=== PATIENT | female | born 1955 | race Caucasian/White ===

== ENCOUNTER 2018-03-01 07:01 | Day surgery (SDC) | payer BC ==
[~2018-03-01 07:01] MED LIST: ACETAMINOPHEN 1,000 MG/100 ML BTL IV ONE; FAMOTIDINE 20MG TABLET PO ONE; MECLIZINE 25 MG TABLET PO ONE; METOCLOPRAMIDE 10 MG TABLET PO ONE; MUPIROCIN OINT 22 GM TUBE TOP ONE
[2018-03-01] MEDS ORDERED: ONDANSETRON HCL IV 4 MG/2 ML VIAL IVP ONE (07:02)
[2018-03-01] MEDS ORDERED: DEXAMETHASONE 4 MG/ML 1ML VIAL IVP ONE (07:02)
[2018-03-01] MEDS ORDERED: FENTANYL PF 100MCG/2ML VIAL IV ONE (07:02)
[2018-03-01] MEDS ORDERED: BUPIVACAINE 0.25% W/EPI MPF 30ML VIAL IVP ONE (07:02)
[2018-03-01] MEDS ORDERED: NEOSTIGMINE 1 MG/1 ML,10ML VIAL IV ONE (07:02)
[2018-03-01] MEDS ORDERED: PROPOFOL 10 MG/ML VIAL IV ONE (07:02)
[2018-03-01] MEDS ORDERED: MIDAZOLAM HCL 2MG/2ML VIAL IV ONE (07:02)
[2018-03-01] MEDS ORDERED: KETOROLAC 30 MG/ML VIAL IVP ONE (07:02)
[2018-03-01] MEDS ORDERED: GLYCOPYRROLATE 0.2 MG/ML ML IV ONE (07:02)
[2018-03-01] MEDS ORDERED: SUCCINYLCHOLINE 20 MG/ML 10ML IVP ONE (07:02)
[2018-03-01] MEDS ORDERED: LIDOCAINE 2% MDV (20MG/ML) 20ML VIAL IV ONE (07:02)
[2018-03-01] MEDS ORDERED: HYDROCODONE/APAP 5/325MG TABLET PO ONE (07:02)
[2018-03-01] MEDS ORDERED: SEVOFLURANE 250 ML INH ONE (07:02)
[2018-03-01] MEDS ORDERED: ROCURONIUM BROMIDE 50MG/5ML VIAL IV ONE (07:02)
--- NOTE | 2018-03-01 14:50 | Operative Note ---
DATE OF SURGERY: 03/01/2018 Surgeon: Mahendra Crane DO PREOPERATIVE DIAGNOSIS: Cholelithiasis with chronic cholecystitis. POSTOPERATIVE DIAGNOSIS: Cholelithiasis with chronic cholecystitis. OPERATION: Laparoscopic cholecystectomy. Indication: The patient is a 62-year-old female who is having ongoing right subcostal postprandial pain. Imaging studies did reveal cholelithiasis. Clinical history was that of recurrent biliary colic. We did discuss cholecystectomy. Risks, benefits, and alternatives were discussed. Risks include bleeding, infection, ductal injury, possible conversion to open, postoperative bile leak. She understood this fully. PROCEDURE: Thereafter, consent was signed and questions answered. She was taken to the operating room and placed in a supine position. General anesthesia was administered per the department of anesthesia. The patient's abdomen was prepped and draped in the usual sterile fashion. The infraumbilical region was anesthetized with a total of 5 mL of 0.25% Sensorcaine with epinephrine. A 2 cm infraumbilical incision was made. This was carried down to the anterior rectus fascia. This was incised. Kareem clamps were placed on the fascial edges and brought up into the wound. Stay sutures of 0 Vicryl were placed. Posterior rectus sheath was identified and incised. The peritoneal cavity was entered bluntly. At this time, a 10 mm blunt Alexey port was placed. Adequate pneumoperitoneum was established. Under direct visualization, additional 5 mm epigastric and two 5 mm right subcostal ports were placed. The gallbladder was identified in the subhepatic space. It was thick and there were some dense omental adhesions anteriorly. The gallbladder was retracted in a cephalad direction. The omental adhesions were taken down with the Willem harmonic. Hemostasis was noted. The gallbladder was retracted farther in a cephalad and lateral direction opening up the angle of Calot. The hepatocystic triangle was thoroughly dissected out. There was no aberrant anatomy, no posterior ductal structures. The cystic duct and cystic artery were clearly identified. The patient did have a very friable node of Calot as well. Each one was doubly clipped and cut in a standard fashion. Gallbladder was then taken off the liver bed with the Willem harmonic. This was then extracted through the umbilical port. Right upper quadrant was rechecked and found to be hemostatic. No bleeding. No bile leak. No bowel injury noted. The patient was leveled out. The pneumoperitoneum was released. All ports were removed. The fascia was closed with 0 Vicryl in a [id number] fashion. The skin at all ports was closed with 4-0 Vicryl. The patient was taken to the recovery room in satisfactory condition. FINDINGS AT THE TIME OF SURGERY: Chronic cholecystitis. CC: NORMA BOYER MD, FACP [facility]
== END 2018-03-01 10:55 | disposition home or self-care (01) ==
LOC: SUR 07:01
PROVIDERS: ATTEND Surgery
DX: K80.10 Calculus of gallbladder with chronic cholecystitis without obstruction (principal); I10 Essential (primary) hypertension; G47.30 Sleep apnea, unspecified
CPT/HCPCS: 47562; 00790; J1885; J2405; J3010; J0330; J2710

== ENCOUNTER 2018-05-31 22:30 | Emergency (ER) | payer BC ==
[2018-05-31] MEDS ORDERED: ONDANSETRON HCL IV 4 MG/2 ML VIAL IVP ONE (22:39)
[2018-05-31] MEDS ORDERED: MAGNESIUM HYDROXIDE/AL HYDROX 30 ML, LIDOCAINE VISC 2% 15ML 15 ML PO ONE ×2 (22:40)
--- NOTE | 2018-05-31 22:44 | Emergency Department Record ---
History of Present Illness - General Chief Complaint: Abdominal Pain Stated Complaint: ABDOMINAL PAIN,HEARTBURN PAIN Time Seen by Provider: 05/31/18 22:32 Source: Patient Mode of Arrival: Ambulatory Limitations: No limitations - History of Present Illness Initial Comments: 63 yo female presents to ED for evaluation of epigatric abdominal pain that began 3 days ago. Patient reports decreased appetite and pain with eating, denies fevers, chills, cough, or vomiting symptoms. Patient does reports loose stools today, denies urinary symptoms or flank pain. Patient reports recent cholcystectomy as well. Patient denies health problems other than depression and anxiety. MD Complaint: Abdominal pain Onset/Timin -: Days(s) Severity: Moderate Quality: Aching Consistency: Constant Improves With: Nothing Worsens With: Nothing Associated Symptoms: Denies other symptoms - Related Data Patient : No Hx Age of Menopause: 42 Home Medications Medication Instructions Recorded Confirmed Last Taken Alprazolam 0.25 mg PO BID PRN 05/31/18 05/31/18 Unknown Losartan Potassium [Cozaar] 25 mg PO DAILY 05/31/18 05/31/18 Unknown Allergies Allergy/AdvReac Type Severity Reaction Status Date / Time No Known Drug Allergies Allergy Verified 04/07/14 08:15 Review of Systems Constitutional: Denies: Chills, Fever, Malaise, Night sweats Eyes: Denies: Eye discharge, Eye pain ENT: Denies: Congestion, Ear pain, Epistaxis Respiratory: Denies: Cough, Dyspnea Cardiovascular: Reports: Chest pain. Denies: Dyspnea on exertion Endocrine: Denies: Fatigue, Heat or cold intolerance Gastrointestinal: Reports: Abdominal pain, Nausea. Denies: Vomiting Genitourinary: Denies: Incontinence, Retention Musculoskeletal: Denies: Arthralgia, Back pain, Gout, Joint swelling Skin: Denies: Bruising, Change in color Neurological: Denies: Abnormal gait, Confusion, Headache, Seizure Psychiatric: Denies: Anxiety Hematological/Lymphatic: Denies: Anemia, Blood Clots Past Medical History - SOCIAL HISTORY Smoking Status: Former smoker - RESPIRATORY Hx Respiratory Disorders: Yes Hx Bronchitis: Yes (not recently) Hx Sleep Apnea: Yes Hx of CPAP: Yes (pt can't get used to it-dont use) - CARDIOVASCULAR Hx Cardio Disorders: Yes Hx Hypertension: Yes (med good control) - NEURO Hx Neuro Disorders: No - GI Hx GI Disorders: Yes Hx Abdominal Pain: Yes (RUQ due to gallstones) Hx Wt Loss/Wt Gain: Yes (gain 10lbs in last 2 months) - Hx Genitourinary Disorders: No Hx Bladder Problem: Yes (stress incont) - ENDOCRINE Hx Endocrine Disorders: No - MUSCULOSKELETAL Hx Musculoskeletal Disorders: No - PSYCH Hx Psych Problems: Yes Hx Anxiety: Yes Hx Depression: Yes - HEMATOLOGY/ONCOLOGY Hx Hematology/Oncology Disorders: Yes Hx Anemia: Yes (age 20s) Family Medical History Hx Anxiety: Father Hx Cancer: Father *Cancer Comment: father melanoma Hx Dementia: Grandparents Hx Depression: Father Hx Heart Disease: Father *Heart Comment: chf Hx HTN: Mother Hx Kidney Disease: Father *Kidney Comment: on dialysis Hx Resp Disorders: Father *Resp Comment: copd Hx Stroke: Father Physical Exam - General General Appearance: Alert, Oriented x3, Cooperative, Mild distress Limitations: No limitations - Head Head exam: Atraumatic, Normocephalic, Normal inspection Head exam detail: negative: Abrasion, Contusion, Gooden's sign, General tenderness, Hematoma, Laceration - Eye Eye exam: Normal appearance. negative: Conjunctival injection, Periorbital swelling, Periorbital tenderness, Scleral icterus - ENT Ear exam: negative: Auricular hematoma, Auricular trauma Nasal Exam: negative: Active bleeding, Discharge, Dried blood, Foreign body Mouth exam: negative: Drooling, Laceration, Muffled voice, Tongue elevation - Neck Neck exam: Normal inspection. negative: Meningismus, Tenderness - Respiratory Respiratory exam: Normal lung sounds bilaterally. negative: Rales, Respiratory distress, Rhonchi, Stridor - Cardiovascular Cardiovascular Exam: Regular rate, Normal rhythm, Normal heart sounds - GI/Abdominal GI/Abdominal exam: Soft, Other (Abdominal examination is non-tender, no distention, no guarding, no peritoneal signs on examination.). negative: Rebound, Rigid, Tenderness - Rectal Rectal exam: Deferred - exam: Deferred - Extremities Extremities exam: Normal inspection. negative: Calf tenderness, Pedal edema, Tenderness - Back Back exam: Denies: CVA tenderness (R), CVA tenderness (L) - Neurological Neurological exam: Alert, Normal gait, Oriented X3 - Psychiatric Psychiatric exam: Normal affect, Normal mood - Skin Skin exam: Normal color. negative: Abrasion Type of lesion: negative: abrasion Course Vital Signs 05/31/18 22:36 Temperature 98.1 F Pulse Rate [ 88 Pulse Ox Probe] Respiratory 20 Rate Blood Pressure 148/91 [Left Arm] Pulse Ox 97 - Reevaluation(s) Reevaluation #1: 05/31/18 22:45 EKG: NSR 85 Normal axis, normal intervals No acute ST-T wave changes 05/31/18 23:34 Laboratory studies reviewed: AST 872 ALT 1277 Alk Phos 752 Labs are otherwise grossly unremarkable for an acute process. Reevaluation #2: 05/31/18 23:53 Patient was updated on all results thus far, denies Tylenol use, denies any recent mushroom ingestion. Awaiting CT imaging results, will likely transfer to [facility] per patient choice for further evaluation. Reevaluation #3: 06/01/18 00:08 CT Abdomen and Pelvis: Mild wall thickening of the gastric antrum and first portion of the duodenum suggestive of duodenitis. Nonspecific bowel wall thickening of the biliary tree, can be seen in choalgitis , no radio-opague choledocholithiasis. Simple right adnexal cyst. Mild aorta-iliac disease Small fat-containing umbilical hernia Patient was updated on all results, reports improvement in her symptoms following GI cocktail. Case was discussed with Dr. Crane, specifically patient's CT reports (possible cholangitis) and elevated liver enzymes. Patient's overall examination is not clinical c/w cholangitis however. Dr. Crane recommends discharge home with follow-up in 1-2 days in his office for scheduling an MRI. Plan was discussed with the patient and her SO, they are in agreement with the plan to go home at this time and call Dr. Crane in the morning to be seen in the office for further evaluation. Patient was instructed to return to ED or to go to [facility] for evaluation of her symptoms worsen. Patient and her SO verbalize understanding of all instructions, appears stable for discharge at this time. Medical Decision Making - Lab Data Result diagrams: 05/31/18 22:48 05/31/18 22:48 Disposition Disposition: Discharge Clinical Impression: Elevated liver enzymes Abdominal pain Qualifiers: Abdominal location: epigastric Qualified Code(s): R10.13 - Epigastric pain Disposition: Home, Self-Care Condition: (2) Stable Instructions: Abdominal Pain (ED) Additional Instructions: Return to ED if your symptoms worsen or if you have any concerns. Follow-up with Dr. Crane in 1-2 days as discussed. Referrals: Mahendra Crane [DOCTOR OF OSTEOPATH] - Forms: Patient Portal Access Time of Disposition: 00:26 Quality - Quality Measures Quality Measures: N/A - Blood Pressure Screening Does Patient Have Any of the Following: No Blood Pressure Classification: Hypertensive Reading Systolic Measurement: 148 Diastolic Measurement: 91 Screening for High Blood Pressure: < First Hypertensive BP, F/U Documented > [ [id number]] First Hypertensive Follow-up Interventions: Referral to alternative/primary care provider.
[2018-05-31 22:57] LABS: BASO % 0.3 % (0-6); EOS % 2.9 % (0-6); GRAN % 61.8 % (47-80); HEMATOCRIT 40.3 % (35.0-47.0); LYMPH % 27.8 % (16-45); MEAN CELL VOLUME 87.8 fl (81-97); MEAN CORPUSCULAR HEMOGLOBIN 28.3 pg (27-33); MEAN CORPUSCULAR HGB CONC 32.3 g/dl (32-36); MEAN PLATELET VOLUME 10.6 fl (7.4-10.4); MONO % 7.2 % (0-9); PLATELET COUNT 249 K/uL (130-400); RED BLOOD COUNT 4.59 M/uL (3.80-5.40); RED CELL DISTRIBUTION WIDTH 13.9 % (11.5-14.5); WHITE BLOOD COUNT W/O DIFF 6.2 K/uL (4.2-12.2)
[2018-05-31 23:05] LABS: BLOOD UREA NITROGEN 12 mg/dL (8-23)
[2018-05-31 23:06] LABS: CREATININE 0.8 mg/dL (0.5-0.9); EST GLOMERULAR FILTRATION RATE > 60 mL/min; LIPASE 42 U/L (13-60); TOTAL PROTEIN 7.8 g/dL (6.6-8.7)
[2018-05-31 23:08] LABS: GLUCOSE,RANDOM 100 mg/dL (74-109)
[2018-05-31 23:11] LABS: ALB/GLOB RATIO 1.3 (1.1-1.8); ALBUMIN 4.4 g/dL (4.0-5.0); ALKALINE PHOSPHATASE 752 U/L (45-87)
[2018-05-31 23:25] LABS: ALT/SGPT 1277 U/L (<33); AST/SGOT 874 U/L (10.0-35.0)
[2018-05-31 23:59] LABS: URINE APPEARANCE CLEAR; URINE BILIRUBIN NEGATIVE (NEGATIVE); URINE BLOOD NEGATIVE (NEGATIVE); URINE COLOR YELLOW; URINE GLUCOSE (UA) NEGATIVE (NEGATIVE); URINE KETONE NEGATIVE (NEGATIVE); URINE LEUKOCYTE ESTERASE NEGATIVE (NEGATIVE); URINE NITRITE NEGATIVE (NEGATIVE); URINE PROTEIN NEGATIVE (NEGATIVE); URINE UROBILINOGEN 0.2 E.U./dL (0.20 - 1.00)
[2018-06-01] MEDS ORDERED: TRAMADOL HCL 50 MG TABLET PO ONE (00:32)
== END 2018-06-01 00:42 | disposition home or self-care (01) ==
LOC: ER 22:30
DX: R10.13 Epigastric pain (principal); R94.5 Abnormal results of liver function studies; R94.8 Abnormal results of function studies of other organs and systems; R19.7 Diarrhea, unspecified; I10 Essential (primary) hypertension; Z87.891 Personal history of nicotine dependence
CPT/HCPCS: 99284 ×2; 96374; 83690; 85025; 80053; 81003; 84484; 74177; 93005; 93010; Q9967; J2405